=== PATIENT | female | born 1995 | race Caucasian/White ===

== ENCOUNTER 2019-07-01 14:49 | Emergency (ER) | payer BC, OTHER ==
[2019-07-01 15:49] VITALS: BP 118/78
--- NOTE | 2019-07-01 16:03 | UC ---
Lower Extremity/Ankle HPI - HPI Summary HPI Summary: right great toe pain and swelling some purulent drainage around nail---tender to touch - History of Current Complaint Chief Complaint: UCSkin Stated Complaint: TOE PAIN Time Seen by Provider: 07/01/19 15:50 Hx Obtained From: Patient Hx Last Menstrual Period: a few days ago ?: No Onset/Duration: Gradual Onset, Lasting Days, Still Present Pain Intensity: 2 Pain Scale Used: 0-10 Numeric Aggravating Factor(s): Standing, Ambulation Alleviating Factor(s): Rest, Elevation, OTC Meds Able to Bear Weight: Yes - Allergies/Home Medications Allergies/Adverse Reactions: Allergies Allergy/AdvReac Type Severity Reaction Status Date / Time hydrocodone [From Vicodin] AdvReac Nausea And Verified 07/01/19 15:49 Vomiting Home Medications: Home Medications Control 1 tab PO DAILY 07/01/19 [History Confirmed 07/01/19] SUMAtriptan TAB* [Imitrex TAB*] 25 mg PO SEE INSTRUCTIONS 07/01/19 [History Confirmed 07/01/19] PMH/Surg Hx/FS Hx/Imm Hx Previously Healthy: Yes Neurological History: Migraine - Surgical History Surgical History: Yes Surgery Procedure, Year, and Place: wisdom teeth - Family History Known Family History: Positive: None - Social History Occupation: Employed Full-time Lives: Alone Alcohol Use: Rare Substance Use Type: None Smoking Status (MU): Never Smoked Tobacco Review of Systems All Other Systems Reviewed And Are Negative: Yes Constitutional: Positive: Negative Skin: Positive: Other - erythema arund right great toe nail Eyes: Positive: Negative ENT: Positive: Negative Respiratory: Positive: Negative Cardiovascular: Positive: Negative Gastrointestinal: Positive: Negative Genitourinary: Positive: Negative Motor: Positive: Negative Neurovascular: Positive: Negative Musculoskeletal: Positive: Arthralgia - toe is tender to touch Neurological: Positive: Negative Psychological: Positive: Negative Is Patient Immunocompromised?: No Physical Exam Triage Information Reviewed: Yes Appearance: Well-Appearing, No Pain Distress, Well-Nourished Vital Signs: Initial Vital Signs Temp 98.6 F 07/01/19 15:45 Pulse 64 07/01/19 15:45 Resp 16 07/01/19 15:45 BP 118/78 07/01/19 15:45 Pulse Ox 99 07/01/19 15:45 Vital Signs Reviewed: Yes Eye Exam: Normal Eyes: Positive: Conjunctiva Clear ENT Exam: Normal ENT: Positive: Normal ENT inspection, Hearing grossly normal. Negative: Nasal congestion, Trismus, Muffled voice, Hoarse voice Dental Exam: Normal Neck exam: Normal Neck: Positive: Supple, Nontender Respiratory Exam: Normal Respiratory: Positive: Chest non-tender, No respiratory distress, No accessory muscle use Cardiovascular Exam: Normal Cardiovascular: Positive: RRR, Pulses Normal, Brisk Capillary Refill Musculoskeletal Exam: Normal Musculoskeletal: Positive: Strength Intact, ROM Intact, Edema @ - distal right great toe swelling Neurological Exam: Normal Neurological: Positive: Alert, Muscle Tone Normal Psychological Exam: Normal Skin: Positive: Other - purulent drainage around right great toe nail Lower Extremity Course/Dx - Course Course Of Treatment: warm soap and water soaks, keflex, protect from injury follow with podiatry - Differential Dx/Diagnosis Provider Diagnosis: Paronychia of great toe, right Discharge - Sign-Out/Discharge Documenting (check all that apply): Patient Departure All imaging exams completed and their final reports reviewed: No Studies - Discharge Plan Condition: Stable Disposition: HOME Prescriptions: Cephalexin CAP* [Keflex CAP*] 500 mg PO QID 10 Days #40 cap Patient Education Materials: Paronychia (ED), Warm Compress or Soak (ED) Referrals: Gina Serrano DPM [Doctor of Podiatric Medicine] - Jose Bennett DPM [Doctor of Podiatric Medicine] - Anival Rawls DPM [Doctor of Podiatric Medicine] - - Billing Disposition and Condition Condition: STABLE Disposition: Home
== END 2019-07-01 16:10 | disposition home or self-care (01) ==
LOC: UCEAST 14:49
DX: L03.031 Cellulitis of right toe (principal)
CPT/HCPCS: 99212; G0463

== ENCOUNTER 2019-11-13 09:20 | Emergency (ER) | payer BC ==
[2019-11-13 09:30] VITALS: BP 124/87
--- NOTE | 2019-11-13 09:32 | UC ---
Respiratory Complaint HPI - HPI Summary HPI Summary: 24 yo female presents with URI symptoms. She tells me that for the past week she has had sinus pain/pressure/congestion, post nasal drip, and intermittently productive cough. She has been taking OTC cold medicine with good relief at first, but no longer helping. Over the last 2 days has had green rhinorrhea and productive cough. Feels feverish, but has not had a temperature. Denies SOB, chest pain, rash, n/v - History of Current Complaint Chief Complaint: UCGeneralIllness Stated Complaint: CONGESTION, COUGH Time Seen by Provider: 11/13/19 09:32 Hx Obtained From: Patient Hx Last Menstrual Period: bcp Onset/Duration: Gradual Onset Severity Initially: Mild Severity Currently: Mild Pain Intensity: 3 Pain Scale Used: 0-10 Numeric Character: Cough: Productive - Allergies/Home Medications Allergies/Adverse Reactions: Allergies Allergy/AdvReac Type Severity Reaction Status Date / Time hydrocodone [From Vicodin] AdvReac Nausea And Verified 11/13/19 09:31 Vomiting PMH/Surg Hx/FS Hx/Imm Hx Neurological History: Migraine - Surgical History Surgical History: Yes Surgery Procedure, Year, and Place: wisdom teeth - Family History Known Family History: Positive: None - Social History Alcohol Use: Rare Substance Use Type: None Smoking Status (MU): Never Smoked Tobacco Review of Systems All Other Systems Reviewed And Are Negative: No Constitutional: Positive: Negative Skin: Positive: Negative Eyes: Positive: Negative ENT: Positive: Nasal Discharge, Sinus Congestion, Sinus Pain/Tenderness Respiratory: Positive: Cough Cardiovascular: Positive: Negative Gastrointestinal: Positive: Negative Neurological: Positive: Negative Psychological: Positive: Negative Physical Exam - Summary Physical Exam Summary: GENERAL: NAD. WDWN. No pain distress. SKIN: No rashes, sores, lesions, or open wounds. HEENT: Head: AT/NC Eyes: EOM intact. Conjunctiva clear without inflammation or discharge. Ears: Hearing grossly normal. TMs intact, no bulging, erythema, or edema. Nose: Nasal mucosa mildly swollen and erythematous with yellow discharge. TTP RIGHT maxillary sinus. Positive post nasal drip Throat: Posterior oropharynx without exudates, erythema, or tonsillar enlargement. Uvula midline. NECK: Supple. Nontender. No lymphadenopathy. CHEST: CTAB. No r/r/w. No accessory muscle use. Breathing comfortably and in no distress. CV: RRR. Pulses intact. NEURO: Alert. PSYCH: Age appropriate behavior. Triage Information Reviewed: Yes Vital Signs: Initial Vital Signs Temp 98 F 11/13/19 09:28 Pulse 82 11/13/19 09:28 Resp 18 11/13/19 09:28 BP 124/87 11/13/19 09:28 Pulse Ox 100 11/13/19 09:28 Vital Signs Reviewed: Yes Respiratory Course/Dx - Course Course Of Treatment: Sinusitis - Differential Dx/Diagnosis Provider Diagnosis: Sinusitis Discharge ED - Sign-Out/Discharge Documenting (check all that apply): Patient Departure All imaging exams completed and their final reports reviewed: No Studies - Discharge Plan Condition: Stable Disposition: HOME Prescriptions: Azithromycin TAB* [Zithromax TAB (Z-ANGIE) 250 mg #6 tabs] 2 tab PO .TODAY, THEN 1 DAILY #1 angie Patient Education Materials: Sinusitis (ED) Forms: *Work Release Referrals: No Primary Care Phys,NOPCP [Primary Care Provider] - Additional Instructions: If you develop a fever, shortness of breath, chest pain, new or worsening symptoms - please call your PCP or go to the ED immediately. - Billing Disposition and Condition Condition: STABLE Disposition: Home
== END 2019-11-13 09:47 | disposition home or self-care (01) ==
LOC: UCEAST 09:20
DX: J32.9 Chronic sinusitis, unspecified (principal); R09.82 Postnasal drip; Z88.5 Allergy status to narcotic agent
CPT/HCPCS: 99212; G0463